=== PATIENT | male | born 1975 | race Caucasian/White ===

== ENCOUNTER 2017-09-26 16:33 | Emergency (ER) | payer OTHER ==
[~2017-09-26] VITALS: Ht 165.1 cm; Wt 76.0 kg
[2017-09-26] MEDS ORDERED: KETOROLAC TROMETHAMINE 30 MG/ML VIAL IM ONE (18:30)
[2017-09-26 18:55] VITALS: BP 128/78
== END 2017-09-26 19:07 | disposition home or self-care (01) ==
LOC: EMS 16:34
DX: J06.9 Acute upper respiratory infection, unspecified (principal); J40 Bronchitis, not specified as acute or chronic; J02.9 Acute pharyngitis, unspecified; R51 Headache; Z88.0 Allergy status to penicillin
CPT/HCPCS: 71045; 96372; 99283; J1885